=== PATIENT | female | born 1960 | race Caucasian/White ===

== ENCOUNTER 2017-07-18 00:30 | Emergency (ER) | payer OTHER ==
[~2017-07-18 00:30] MED LIST: DIAZ5 PO; LORTA10 PO; MECL-62 PO; METH5SOL3 PO; ONDA4TAB7 OR; PROZ20CA11 PO
[2017-07-18 00:36] VITALS: BP 162/79; PULSE 101; RESP 22; TEMP 98.2; O2SAT 91
[2017-07-18] MEDS ORDERED: DIAZ5 PO (00:45)
[2017-07-18] MEDS ORDERED: HYDR-3583 PO (00:45)
[2017-07-18] MEDS ORDERED: ZOFR4TAB PO (00:45)
[2017-07-18] MEDS ORDERED: PROZ40CA PO (00:45)
[2017-07-18] MEDS ORDERED: METH5TAB PO (00:45)
[2017-07-18] MEDS ORDERED: RESP: ALBUTEROL 2.5 MG/IPRATROPIUM 0.5 MG NEB (SCH) INH ONE (01:15)
[2017-07-18] MEDS ORDERED: methylPREDNISolone SOD SUCC 125 MG/2 ML VIAL IV PUSH ONE (01:15)
[2017-07-18] MEDS ORDERED: SODIUM CHLORIDE 0.9% FLUSH 10 ML FLUSH IVF PRN (01:15)
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
[2017-07-18 01:25] VITALS: O2SAT 93
--- NOTE | 2017-07-18 01:27 | RADRPT ---
EXAM DATE/TIME: 07/18/2017 01:16 [facility] COMPARISON: No previous studies available for comparison. INDICATIONS : Shortness of breath. MEDICAL HISTORY : Irritiable bowel syndrome. bilateral adrenal gland tumors. SURGICAL HISTORY : Colon polyps removed. ENCOUNTER: Initial ACUITY: 1 day PAIN SCORE: 0/10 LOCATION: Bilateral chest FINDINGS: A single view of the chest demonstrates the lungs to be symmetrically aerated without evidence of mas s, infiltrate or effusion. The cardiomediastinal contours are unremarkable. Osseous structures are intact. CONCLUSION: No acute disease. Arnold Jones MD on July 18, 2017 at 1:25 Board Certified Radiologist. This report was verified electronically.
[2017-07-18 01:29] LABS: BASOPHIL % 0.7 % (0.0-2.0); EOSINOPHIL # 0.1 TH/MM3 (0-0.4); EOSINOPHIL % 1.7 % (0.0-4.0); HEMATOCRIT 44.2 % (35.0-46.0); HEMO FLAGS DIFF FINAL; LYMPH % 52.1 % (9.0-44.0); LYMPHOCYTE # 2.8 TH/MM3 (1.0-4.8); MEAN CELL VOLUME 96.7 FL (80.0-100.0); MEAN CORPUSCULAR HEMOGLOBIN 32.8 PG (27.0-34.0); MONO % 8.6 % (0.0-8.0); NEUT % 36.9 % (16.0-70.0); PLATELET COUNT 132 TH/MM3 (150-450); RED BLOOD COUNT 4.57 MIL/MM3 (4.00-5.30); RED CELL DISTRIBUTION WIDTH 14.2 % (11.6-17.2); WHITE BLOOD COUNT 5.4 TH/MM3 (4.0-11.0)
[2017-07-18 02:03] LABS: BICARBONATE 28.8 MEQ/L (21.0-32.0); POTASSIUM 3.9 MEQ/L (3.5-5.1)
[2017-07-18] MEDS ORDERED: VENTAER INH (02:51)
[2017-07-18] MEDS ORDERED: PRED20 PO (02:51)
[2017-07-18] MEDS ORDERED: ZITHTAB PO (02:51)
--- NOTE | 2017-07-18 17:45 | EKG ---
Date Performed: 07/18/2017 Time Performed: 00:43:23 PTAGE: 57 years EKG: Sinus rhythm POSSIBLE RIGHT ATRIAL ENLARGEMENT NONSPECIFIC T-WAVE ABNORMALITY Since previous tracing, no signific ant change noted BORDERLINE ECG PREVIOUS TRACING : 07/31/2015 22.24 DOCTOR: Cyndie Rosas Interpretating Date/Time 07/18/2017 17:44:12
== END 2017-07-18 03:32 | disposition home or self-care (01) ==
LOC: NEPC 00:30
DX: J45.21 Mild intermittent asthma with (acute) exacerbation (principal); F17.210 Nicotine dependence, cigarettes, uncomplicated; F31.9 Bipolar disorder, unspecified
CPT/HCPCS: 71010; 80048; 85025; 93005; 94664; 96374; 99285; J2930

== ENCOUNTER 2017-11-05 20:42 | Emergency (ER) | payer SELFPAY ==
[~2017-11-05] VITALS: Ht 165.1 cm; Wt 50.0 kg
[~2017-11-05 20:42] MED LIST changes: +HYDR-3583 PO; -LORTA10 PO; -MECL-62 PO; -METH5SOL3 PO; +METH5TAB PO; -ONDA4TAB7 OR; +PRED20 PO; -PROZ20CA11 PO; +PROZ40CA PO; +VENTAER INH; +ZITHTAB PO; +ZOFR4TAB PO
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
[2017-11-05 20:48] VITALS: BP 136/65; PULSE 70; RESP 16; TEMP 97.5
[2017-11-05 21:40] LABS: AUTOMATED NEUTROPHIL # 4.8 TH/MM3 (1.8-7.7); BASOPHIL % 0.4 % (0.0-2.0); EOSINOPHIL % 0.2 % (0.0-4.0); HEMATOCRIT 40.7 % (35.0-46.0); HEMOGLOBIN 13.7 GM/DL (11.6-15.3); LYMPH % 15.7 % (9.0-44.0); MEAN CELL VOLUME 99.9 FL (80.0-100.0); MEAN CORPUSCULAR HEMOGLOBIN 33.7 PG (27.0-34.0); MEAN CORPUSCULAR HGB CONC 33.7 % (32.0-36.0); MEAN PLATELET VOLUME 7.6 FL (7.0-11.0); MONO % 6.7 % (0.0-8.0); MONOCYTE # 0.4 TH/MM3 (0-0.9); PLATELET COUNT 187 TH/MM3 (150-450); RED BLOOD COUNT 4.07 MIL/MM3 (4.00-5.30); WHITE BLOOD COUNT 6.3 TH/MM3 (4.0-11.0)
[2017-11-05 22:06] LABS: BICARBONATE 26.1 MEQ/L (21.0-32.0); CALCIUM 8.1 MG/DL (8.5-10.1); CREATININE 0.69 MG/DL (0.50-1.00)
[2017-11-05] MEDS ORDERED: POTASSIUM CHLORIDE 20 MEQ CONTROLLED RELEASE TAB PO ONE (22:30)
[2017-11-05] MEDS ORDERED: POTASSIUM CHLOR 20 MEQ PREMIX 100 ML IV ONE (22:30)
[2017-11-05] MEDS ORDERED: ONDANSETRON HCL 4 MG/2 ML VIAL IV PUSH ONE (22:45)
[2017-11-05 23:27] LABS: BACTERIA, URINE RARE /hpf; BILIRUBIN, URINE NEG (NEG); BLOOD, URINE SMALL (NEG); GLUCOSE,URINE NEG (NEG); KETONE, URINE 10 mg/dL (NEG); MUCUS URINE FEW /lpf (OCC); NITRITE,URINE NEG (NEG); PH, URINE 6.5 (5.0-8.5); SQUAMOUS EPITHELIAL CELL URINE 8 /hpf (0-5); URINE COLOR YELLOW (YELLW/STRAW); URINE LEUKOCYTE ESTERASE LARGE (NEG)
[2017-11-05] MEDS ORDERED: MACR100C2 PO (23:42)
[2017-11-05] MEDS ORDERED: NITROFURANTOIN MONOHYD MACROCR 100 MG CAP PO ONE (23:45)
[2017-11-06 00:58] VITALS: BP 130/60; PULSE 74; RESP 16; O2SAT 98
== END 2017-11-06 01:32 | disposition home or self-care (01) ==
LOC: NEPC 20:42
DX: N39.0 Urinary tract infection, site not specified (principal); S81.802A Unspecified open wound, left lower leg, initial encounter; F17.200 Nicotine dependence, unspecified, uncomplicated; X58.XXXA Exposure to other specified factors, initial encounter
CPT/HCPCS: 80048; 81001; 85025; 86403; 87040; 87070; 87086; 87186; 96374; 96375; 99284; J2405; J3480; 87205